=== PATIENT | female | born 1985 | race Two or more races ===

== ENCOUNTER 2019-03-05 20:51 | Emergency (ER) | payer SELFPAY ==
[~2019-03-05] VITALS: Ht 157.5 cm; Wt 52.2 kg
--- NOTE | 2019-03-05 20:55 | NUR ---
PT BIB [facility] WITH A C/O SEIZURE. (FIRST TIME SEIZURE). PT HAD 2 EDIBLES IN THE FIELD AND A DRINK. PT STATED THAT SHE ATE A CHICKEN SANDWICH AND FRIES. 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 PT IS ON THE MONITOR AND CONTINUOUS PULSE OX. VSS. SR UP X 2 AND PADDED.
--- NOTE | 2019-03-05 21:29 | NUR ---
FILIPPO, VALVE SETTER IS AT THE BEDSIDE.
[2019-03-05] MEDS ORDERED: IV NS 0.9% 1,000 ML BAG IV ONE (21:30)
[2019-03-05 21:33] LABS: BASOPHILS % (AUTO) 0.7 % (0.0-2.0); EOSINOPHILS % (AUTO) 3.8 % (0.0-6.0); HEMATOCRIT 42 % (33-45); HEMOGLOBIN 14.1 g/dL (11.5-14.8); LYMPHOCYTES # (AUTO) 1.8 /CMM (0.8-4.8); LYMPHOCYTES % (AUTO) 26.8 % (20.0-44.0); MEAN CORPUSCULAR HGB CONC 33 g/dl (31.0-36.0); MEAN CORPUSCULAR VOLUME 98 fL (82-100); MONOCYTES # (AUTO) 0.4 /CMM (0.1-1.30); MONOCYTES % (AUTO) 5.4 % (2.0-12.0); NEUTROPHILS # (AUTO) 4.3 /CMM (1.8-8.9); NEUTROPHILS % (AUTO) 63.3 % (43.0-81.0); PLATELET COUNT (AUTO) 309 /CMM (150-450); WHITE BLOOD COUNT (AUTO) 6.7 K/uL (4.3-11.0)
[2019-03-05 21:43] LABS: CALCIUM, SERUM 9.1 mg/dL (8.5-10.1); CREATININE 0.9 mg/dL (0.6-1.3); POTASSIUM 3.8 mmol/L (3.5-5.1)
[2019-03-05 21:47] LABS: ALBUMIN 3.7 g/dL (3.4-5.0); BILIRUBIN,DIRECT 0.1 mg/dL (0.0-0.2); BILIRUBIN,TOTAL 0.3 mg/dL (0.2-1.0); TOTAL PROTEIN, SERUM 7.6 g/dL (6.4-8.2)
--- NOTE | 2019-03-05 22:18 | NUR ---
PT WAS TAKEN TO THE BATHROOM VIA WC AND A URINE SAMPLE WAS OBTAINED.
--- NOTE | 2019-03-05 22:32 | NUR ---
DR MENG IS AT THE BEDSIDE.
--- NOTE | 2019-03-05 22:40 | NUR ---
PT IS IN CT.
--- NOTE | 2019-03-05 23:00 | NUR ---
PT RETURNED FROM CT.
[2019-03-05] MEDS ORDERED: IBUPROFEN 600 MG TABLET PO ONE ×2 (23:29→23:30)
--- NOTE | 2019-03-05 23:36 | NUR ---
PT WANTS TO URINATE. PT TO GIVE ANOTHER URINE SAMPLE. PT WAS TAKEN TO THE BATHROOM VIA WC.
--- NOTE | 2019-03-06 00:27 | NUR ---
IV removed. Catheter intact and site benign. Pressure and 4x4 applied to site. No bleeding noted. Patient discharged to home in stable condition. Written and verbal after care instructions given. Patient verbalizes understanding of instruction. PT AMBULATED OUT WITH HER CRUTCH. PT'S BOYFRIEND IS DRIVING PT HOME. VSS. NAD NOTED.
[2019-03-06 00:58] VITALS: BP 127/70
== END 2019-03-06 00:27 | disposition home or self-care (01) ==
LOC: ER 20:53
DX: R55 Syncope and collapse (principal)
CPT/HCPCS: 36415; 70450; 80048; 80076; 83690; 85025; 96360; 99284; J7030